=== PATIENT | female | born 1950 | race Caucasian/White ===

== ENCOUNTER 2017-02-16 08:18 | Outpatient (CLI) | payer OTHER ==
[~2017-02-16] VITALS: Ht 171.4 cm; Wt 76.8 kg
--- NOTE | ~2017-02-16 | HP ---
PATIENT: ABIEL WAGGONER MEDICAL RECORD: [id number] ACCOUNT: [id number] LOCATION:[facility] : 54 ADMISSION DATE: 02/16/17 HISTORY AND PHYSICAL EXAMINATION ADMITTING DIAGNOSES: 1. Angina. 2. Dyspnea on exertion. 3. Abnormal nuclear stress test. 4. Supraventricular tachycardia. 5. Hyperlipidemia. 6. Family history of coronary artery disease. HISTORY OF PRESENT ILLNESS: Mrs. Waggoner has no previous history of ischemic heart disease. She presented with angina and supraventricular tachycardia. Supraventricular tachycardia was controlled with metoprolol. She had a nuclear stress testing revealing reversible ischemia, now brought for cardiac catheterization. REVIEW OF SYSTEMS: The patient reports easy bruising but reports no swollen glands. The patient reports no fever, no night sweats, no significant weight gain, no significant weight loss. No significant exercise tolerance. The patient reports no dry eyes, no irritation, no vision change. Patient reports no difficulty hearing and no ear pain. Patient reports no frequent nose bleeds or nose and sinus problems. Patient reports on arm pain on exertion. No shortness of breath while lying down. No history of heart murmur. Patient reports no cough, no wheezing or coughing up blood. Patient reports no abdominal pain, no vomiting. Normal appetite. No diarrhea and not vomiting blood. No nausea and no constipation. Patient reports no incontinence. No difficulty urinating. No hematuria. No increased frequency. Patient reports no muscle aches. No weakness, no arthralgias, no back pain. No swelling of the extremities. Patient reports no abnormal mole, no jaundice, no rashes. Reports no loss of consciousness. No weakness and no numbness. No seizures, dizziness, or headaches. The patient reports no depression, no sleep disturbance, feeling safe in a relationship and no alcohol abuse. Patient reports on fatigue. Reports no runny nose or sinus pressure. No itching, no hives, and no frequent sneezing. PHYSICAL EXAMINATION: GENERAL APPEARANCE: Well-nourished, well-developed, appears stated age. Level of distress, comfortable. PSYCHIATRIC: Mental status, alert, normal affect. Orientation, oriented to time, place and person. EYES: Lids and conjunctiva, noninjected. No discharge, no pallor. ENT: Lips, teeth, gums, normal dentition. Oropharynx, no cyanosis, no pallor. NECK: Carotid arteries, bilateral normal upstroke, no bruits, no thrills. JUGULAR VEINS: No jugular venous pressure or distention. CERVICAL LYMPH NODES: Nontender, nonenlarged. THYROID: Not enlarged. Nontender. No nodules. LUNGS: Respiratory effort, unlabored. CHEST: Normal curvature. No thoracic deformity. No chest wall tenderness. Percussion, resonant. Auscultation, clear. No wheezes, no rales, no rhonchi. CARDIOVASCULAR: Precordial exam, nondisplaced. No heaves or pericardial thrills. Rate and rhythm, regular. Heart sounds, normal S1, normal S2. No S3, no gallop, no rub. Systolic murmur, not heard. Diastolic murmur, not heard. HISTORY AND PHYSICAL [id number] ABIEL WAGGONER EXTREMITIES: No cyanosis, no edema. Peripheral pulses, full and equal in all extremities, except as noted. No bruits appreciated. ABDOMEN: Soft, nondistended. Normal aorta. No bruit. Nontender. No masses. Liver, nontender, no hepatomegaly. Spleen, nontender, no splenomegaly. MUSCULOSKELETAL: No joint tenderness. No joint swelling. No erythema. NEUROLOGICAL: Normal gait, normal strength, normal tone. SKIN: Warm and dry. OVERALL IMPRESSION: Anginal symptomatology, dysrhythmia and abnormal nuclear stress test, most likely she has hemodynamically significant coronary artery disease. We will proceed with coronary angiography. Further care depends upon findings of the angiography. TRANSINT:[id number] Voice Confirmation ID: [id number] DOCUMENT ID: [id number] KIN ALICIA MD CC: [id number] DICTATION DATE: 02/16/17 1013 TOP INSTALLER: 02/16/17 1028 REG [facility] [address] [id number]
--- NOTE | ~2017-02-16 | OP ---
PATIENT NAME: ABIEL ANDERSON MEDICAL RECORD: [id number] :54 LOCATION:D.CAT ADMISSION DATE: SURGEON: KIN ALICIA MD DATE OF OPERATION: 02/16/2017 PROCEDURES: 1. Left heart catheterization. 2. Selective coronary angiography. 3. Left ventriculogram. INDICATION: Chest pain compatible with angina and abnormal nuclear stress test. PROCEDURE IN DETAIL: After informed consent was obtained and after detailed explanation of risks, benefits as well as alternative therapies, the patient elected to proceed with angiogram. The right radial area was prepped and draped in normal sterile fashion. The right radial artery was cannulated via modified Seldinger technique with placement of 5-Burmese sheath. All catheters exchanged through this sheath. FINDINGS: Left ventriculogram was performed in standard 30-degree CEE view, reveals good cardiac wall motion throughout all segments. Overall ejection fraction estimated at 65%. SELECTIVE CORONARY ANGIOGRAPHY: Left main, left anterior descending, left circumflex, right coronary artery are all smooth-walled vessels with no angiographic evidence of coronary artery disease. OVERALL IMPRESSION: 1. No angiographic evidence of coronary artery disease. 2. Normal left heart pressures. 3. Normal left ventricular systolic function. Chest pain is noncardiac in etiology. No further cardiac workup needs to be ascertained. TRANSINT:[id number] Voice Confirmation ID: [id number] DOCUMENT ID: [id number] KIN ALICIA MD CC: [id number] DICTATION DATE: 02/16/17 1151 POULTRY BUYER: 02/16/17 1416 REG [facility] [address] [place] [address]
--- NOTE | ~2017-02-16 | HEMODYNAMI ---
PATIENT:ABIEL ANDERSON MEDICAL RECORD: [id number] : 54 LOCATION:D.CAT ADMISSION DATE: 02/16/17 Generatedon:02/16/201711:48 Patient name: ABIEL ANDERSON Patient #: [id number] SSN: : 1950 Date of study: 02/16/2017 Page: Of Hemodynamic Procedure Report Patient Data Patient Demographics Procedure consent was obtained First Name: ABIEL Gender: Female Last Name: JUSTIN : 1950 Middle Initial: KATIE Age: 66 year(s) Patient #: [id number] Race: Unknown Additional ID: [id number] Contact details Address: [place] [address] State: [place] City: [place] Zip code: [address] Past Medical History Allergies: No known allergies Admission Admission Data Admission Date: 02/16/2017 Admission Time: 8:18 Height (in.): 67 BSA: 1.88 (m2) Height (cm.): 170.18 BMI: 26.47 (kg/m2) Weight (lbs.): 169 Weight (kg.): 76.66 Procedure Procedure Types Cath Procedure Diagnostic Procedure C [facility] w/Coronaries Miscellaneous Procedures Moderate Sedation up to 15 minutes Procedure Description Procedure Date Procedure Date: 02/16/2017 Procedure Start Time: 11:40 Procedure Staff Name Function Ovidio Larsen MD Performing Physician Grecia Hayes RN Nurse Dangelo Rangel RT Monitor Molina Hart RT Scrub Mathieu Thomas RN Health Management Consultant Procedure Data Cath Procedure Fluoroscopy Diagnostic fluoroscopy Total fluoroscopy Time: 0.6 time: 0.6 min min Diagnostic fluoroscopy Total fluoroscopy dose: 159 dose: 159 mGy mGy Contrast Material Contrast Material Type Amount (ml) Isovue 300 40 Entry Location Entry Primary Successful Side Size Upsize Upsize Entry Closure Wan ccessful Closure Location (Fr) 1 (Fr) 2 (Fr) Remarks Device Remarks Radial Right 6 Fr Mechanical artery Short Compression Diagnostic catheters Device Type Used For End Catheter Placement Diagnostic Terumo 5Fr Coronary Gerber 110cm catheter Angiography Procedure Medications Medication Administration Route Dosage Oxygen NC 2 l/min Heparin Flush Bag added to field 2 bags (1000units/500ml NS) Lidocaine 2% added to field 20 Radial Cocktail added to field 1 syringe (Verapomil 2mg/Nitro 400mcg/Heparin 1500units) Versed I.V. 1 mg Fentanyl I.V. 50 mcg Versed I.V. 1 mg Fentanyl I.V. 50 mcg Radial Cocktail added to field 1 syringe (Verapomil 2mg/Nitro 400mcg/Heparin 1500units) Versed I.V. 1 mg Fentanyl I.V. 50 mcg Hemodynamics Rest BSA: 1.88 (m2) O2 Consumption: Estimated: 169.71 (ml/min) O2 Consumption indexed : Estimated:90.27 (ml/min/m) Heart Rate: 61 (bpm) Snapshots Pre Cath Intra NCS Post Cath Vital Signs Time Heart Resp SPO2 NIBP Rhythm Pain Sedation Rate (ipm) (%) (mmHg) Status Level (bpm) 11:07:30 55 16 98 Measuring NSR 0 (11) 10(A) , No pain 11:08:54 58 16 96 Time NSR 0 (11) 10(A) Exceeded , No pain 11:11:50 72 21 95 No Cuff NSR 0 (11) 10(A) , No pain 11:13:20 55 19 99 140/69(92) NSR 0 (11) 10(A) , No pain 11:17:34 55 16 99 109/76(89) NSR 0 (11) 10(A) , No pain 11:21:40 55 19 100 111/66(86) NSR 0 (11) 10(A) , No pain 11:25:48 53 14 100 113/62(76) NSR 0 (11) 10(A) , No pain 11:29:58 57 17 94 93/60(74) NSR 0 (11) 9(A) , No pain 11:34:01 56 15 100 104/55(76) NSR 0 (11) 9(A) , No pain 11:38:07 58 16 100 103/57(77) NSR 0 (11) 9(A) , No pain 11:42:17 62 16 98 95/48(85) NSR 0 (11) 9(A) , No pain 11:46:21 60 16 98 97/52(75) NSR 0 (11) 9(A) , No pain Medications Time Medication Route Dose Verified Delivered Reason Notes Effectiveness by by 11:05:49 Oxygen NC 2 l/min Ovidio Grecia Per Suzie Hayes RN physician 11:05:57 Heparin Flush added 2 bags Ovidio Nolan used for Bag to Suzie Larsen MD procedure (1000units/500ml field NS) 11:06:05 Lidocaine 2% added 20ml Ovidio Ovidio used for to vial Suzie Larsen MD procedure field 11:06:10 Radial Cocktail added 1 Ovidio Ovidio used for (Verapomil to syringe Suzie Larsen MD procedure 2mg/Nitro field 400mcg/Heparin 1500units) 11:22:27 Versed I.V. 1 mg Ovidio Grecia for sedation Suzie Hayes RN 11:22:33 Fentanyl I.V. 50 mcg Ovidio Grecia for sedation Suzie Hayes RN 11:25:14 Versed I.V. 1 mg Ovidio Grecia for sedation Suzie Hayes RN 11:25:21 Fentanyl I.V. 50 mcg Ovidio Grecia for sedation Suzie Hayes RN 11:27:39 Versed I.V. 1 mg Ovidio Grecia for sedation Suzie Hayes RN 11:27:51 Fentanyl I.V. 50 mcg Ovidio Grecia for sedation Suzie Hayes RN 11:41:10 Radial Cocktail added 1 Ovidio Ovidio for (Verapomil to syringe Suzie Larsen MD vasodilation 2mg/Nitro field 400mcg/Heparin 1500units) Procedure Log Time Note 10:53:24 Mathieu Thomas RN sent for patient. Start room use. 10:53:25 Time tracking: Regular hours 10:53:29 Plan of Care:Hemodynamics will remain stable., Cardiac rhythm will remain stable., Comfort level will be maintained., Respiratory function will remain adequate., Patient/ family verbilizes understanding of procedure., Procedure tolerated without complication., Recovers from procedure without complications.. 10:58:21 Patient received from Pre/Post Procedure Room to CCL 2 Alert and oriented. Tansferred to table in Supine position. 10:58:23 Warm blankets applied, and tomasz hugger turned on for patient comfort. 10:58:23 Correct patient and procedure confirmed by team. 10:58:25 Signed procedure consent form obtained from patient. 10:58:26 ECG and BP/O2 sat monitors applied to patient. 10:58:27 Full Disclosure recording started 10:58:27 - 10:58:31 H&P Date Dictated: 02/16/2017 H&P Addendum completed by physician on day of procedure. (MUST COMPLETE FOR ALL OUTPATIENTS). 10:58:32 Pre-procedure instructions explained to patient. 10:58:33 Pre-op teaching completed and patient verbalized understanding. 10:58:34 Family in waiting room. 10:58:36 Patient NPO since Midnight. 10:58:45 Is the patient allergic to Iodine/contrast media? No. 11:05:40 Vital chart was started 11:05:49 Oxygen 2 l/min NC was administered by Grecia Hayes RN; Per physician; 11:05:57 Heparin Flush Bag (1000units/500ml NS) 2 bags added to field was administered by Ovidio Larsen MD; used for procedure; 11:06:05 Lidocaine 2% 20ml vial added to field was administered by Ovidio Larsen MD; used for procedure; 11:06:10 Radial Cocktail (Verapomil 2mg/Nitro 400mcg/Heparin 1500units) 1 syring e added to field was administered by Ovidio Lrasen MD; used for procedure; 11:06:33 ----Pre-sedation anethsthesia assessment.---- 11:06:44 Was the patient premedicated? No 11:06:45 Is patient on blood thinner?Yes 11:06:48 ACC The patient was administered the following blood thiners within the last 24 hours: ACCPlavix 11:06:50 Patient diabetic? No. 11:06:51 Previous problem with sedation/anesthesia? No ? 11:06:54 Previous problem with sedation/anesthesia? No ? 11:06:55 Snore? Yes 11:06:56 Sleep apnea? No 11:06:57 Deviated septum? No 11:07:00 Opens mouth fully? Yes 11:07:01 Sticks out tongue? Yes 11:07:04 Airway obstruction? No ? 11:07:11 Dentures? No ? 11:07:14 Pre procedure: right dorsailis pedis pulse Doppler 11:07:18 Modified Osvaldo's test Radial < 7 seconds 11:07:23 Patient pain scale 0/10 no pain. 11:07:31 IV patent on arrival in right forearm with 0.9% NaCl at [facility]. 11:07:43 Sharps counted by scrub and verified by R.N. 11:07:44 Alarms reviewed by R. N. 11:07:53 Right Radial & Right Groin area was prepped with chlora-prep and draped in sterile fashion 11:08:13 Patient allergic to No known allergies 11:08:27 Patient Height : 170.18 cm 11:08:33 Patient Weight : 76.66 kg 11:09:15 Baseline sample Acquired. 11:09:20 Rhythm: sinus rhythm 11:16:26 Use device set Radial Dx 11:16:27 Acist Syringe opened to sterile field. 11:16:27 Medline Cath Pack opened to sterile field. 11:16:28 Bag Decanter opened to sterile field. 11:16:28 Terumo 6Fr Slender Glidesheath opened to sterile field. 11:16:29 St Lalo 260cm J .035 wire opened to sterile field. 11:16:29 Acist Hand Control opened to sterile field. 11:16:29 Acist Manifold opened to sterile field. 11:16:30 Tegaderm 4 x 4 opened to sterile field. 11:16:31 MBrace Wrist Support opened to sterile field. 11:22:12 Physician arrived 11:22:13 --------ALL STOP TIME OUT------ 11:22:13 Final Timeout: patient, procedure, and site verified with staff and physician. All members of the team are in agreement. 11:22:15 Right Radial & Right Groin site verified by team. 11:22:19 Physical assessment completed. ASA score P 2 - A patient with mild systemic disease as per Ovidio Larsen MD. 11:22:23 Sedation plan: IV Moderate Sedation Versed, Fentanyl 11::27 Versed 1 mg I.V. was administered by Grecia Hayes RN; for sedation; 11::33 Fentanyl 50 mcg I.V. was administered by Grecia Hayes RN; for sedation; 11::14 Versed 1 mg I.V. was administered by Grecia Hayes RN; for sedation; 11::21 Fentanyl 50 mcg I.V. was administered by Grecia Hayes RN; for sedation; 11::39 Versed 1 mg I.V. was administered by Grecia Hayes RN; for sedation; 11::51 Fentanyl 50 mcg I.V. was administered by Grecia Hayes RN; for sedation; 11::56 Procedure started. 11:40:07 Local anesthetic to right radial artery with Lidocaine 1% by Ovidio Larsen MD.INITIAL ACCESS ONLY 11:40:38 A 6 Fr Short sheath was inserted into the Right Radial artery 11:41:10 Radial Cocktail (Verapomil 2mg/Nitro 400mcg/Heparin 1500units) 1 syring e added to field was administered by Ovidio Larsen MD; for vasodilation; 11:41:24 A Diagnostic Terumo 5Fr Gerber 110cm catheter was advanced over the wire and used for Coronary Angiography. 11:42:18 RCA angiography performed. 11:42:25 LCA angiography performed. 11:42:40 Terumo TR Band Standard opened to sterile field. 11:44:36 Sheath removed intact; hemostasis achieved with Mechanical Compression to the Right Radial artery. 11:44:39 Procedure ended.(Physican Out) 11:44:55 Fluoroscopy time 00.60 minutes. 11:45:00 Fluoroscopy dose: 159 mGy 11:45:00 Flurop Dose total: 159 11:45:05 Contrast amount:Isovue 300 40ml. 11:45:06 Sharps counted by scrub and verified by R.N. 11:45:08 Insertion/operative site no bleeding no hematoma. 11:45:20 Post right radial artery:stable 11:45:21 Post Procedure Pulses reassessed and unchanged 11:45:27 Post-procedure physical assessment completed. ASA score P 2 - A patient with mild systemic disease as per Ovidio Larsen MD. 11:45:30 Post procedure rhythm: unchanged. 11:45:42 Post procedure instruction explained to patient.Patient verbalizes understanding. 11:45:43 Procedure and supply charges have been captured, reviewed, submitted an d are correct. 11:47:30 Report given to Pre/Post Procedure Room. 11:47:33 Patient transfered to Pre/Post Procedure Room with Stretcher. 11:47:59 Vital chart was stopped Device Usage Item Name Manufacture Quantity Catalog Hospital Part Current Minimal Lot# / Number Charge Number Stock Stock Serial# Code Acist Acist 1 03167 [id number] [id number] [id number] 20 Syringe [employer] Inc Medline Cardinal 1 [id number] 27845 467719 5 Cath Pack Health Bag Microtek 1 2001S 266140 33199 747416 5 Decanter [employer] Inc. Terumo 6Fr Terumo 1 [id number] 960217 884612 025848 [address] St Lalo 1 [id number] 645014 254409 017101 30 260cm J .035 wire Acist Hand Acist 1 97720 407813 126763 636558 5 Control [employer] Inc Acist Acist 1 14500 569374 093504 670335 5 Manifold Medical [employer] Inc Tegaderm 4 3M 1 1626W 037735 185941 217577 5 x 4 MBrace Advanced 1 140-0250-00 230982 02239 722954 5 Wrist Vascular Support Dynamics Diagnostic Terumo 1 39-1738 752950 959132 425606 5 Terumo 5Fr Gerber 110cm catheter Terumo TR Terumo 1 [id number] 310776 837677 200437 40 Band Standard Signature Audit [place] Stage Time Signature Unsigned Intra-Procedure 02/16/2017 Dangelo 11:47:56 AM Jenniferield RT (R) (CV) Signatures Monitor : Dangelo Signature : Claire RT Date : Time : [facility] [address] [place] [address]
[2017-02-16] MEDS ORDERED: PLAVIX75 MG PO (08:54)
[2017-02-16] MEDS ORDERED: METOPROLOL TART25 MG PO (08:55)
[2017-02-16] MEDS ORDERED: OMEPRAZOLE20 M1 PO (08:55)
[2017-02-16] MEDS ORDERED: PRAVACHOL40 MG PO (08:55)
[2017-02-16 09:04] VITALS: BP 136/66; Ht 171.4 cm; Wt 76.8 kg
[2017-02-16 09:22] LABS: BASOPHILS 0.4 % (0-2); EOSINOPHILS 1.3 % (0-7); HEMATOCRIT 38.4 % (36.0-48.0); HEMOGLOBIN 12.5 g/dL (12-16); LYMPHOCYTES 31.3 % (15-50); MCH 29.8 pg (26.0-34.0); MCHC 32.6 g/dL (31.0-37.0); MCV 91.6 fL (80.0-100.0); MEAN PLATELET VOLUME 10.6 fL (7.4-10.4); MONOCYTES 11.9 % (2-11); NEUTROPHILS 55.1 % (40-80); PLATELET COUNT 272 10x3/uL (130-400); RBC 4.19 10x6/uL (4.00-5.40); RDW 13.1 % (11.5-14.5); WBC 5.3 10x3/uL (4.8-10.8)
[2017-02-16 09:39] LABS: CALC OSMOLALITY 281 mosm/kg (275-300); CALCIUM 8.5 mg/dL (8.5-10.1); CARBON DIOXIDE 30.2 mmol/L (21.0-32.0); CHLORIDE - SERUM 106 mmol/L (98-107); CREATININE - SERUM 0.8 mg/dL (0.6-1.3); GLUCOSE 100 mg/dL (74-106); POTASSIUM - SERUM 3.8 mmol/L (3.5-5.1); SODIUM 142 mmol/L (136-145); UREA NITROGEN 11 mg/dL (7-18); eGFR NON AFRICAN AMERICAN 76 mL/min (90-120)
[2017-02-16 09:59] LABS: CKMB 0.9 U/L (0.0-3.6); CREATINE KINASE 110 UL (21-215)
[2017-02-16 10:04] LABS: TROPONIN-I < 0.017 ng/mL (0.000-0.060)
--- NOTE | 2017-02-16 12:09 | NUR ---
RESTING WITH EYES CLOSED, O2 AT 2L PER NC FOR COMFORT, AT SIDE-DENIES NEEDS. TR BAND INTACT.
--- NOTE | 2017-02-16 12:45 | NUR ---
CONTINUES TO REST, TR BAND INTACT, AT SIDE- DENIES NEEDS
--- NOTE | 2017-02-16 14:00 | NUR ---
IV D'C WITH CATH TIP INTACT, WRITTEN AND VERBAL INSTRUCTIONS GIVEN TO PT AND - VERBAL UNDERSTANDING NOTED. UP TO RESTROOM - VOID. TR BAND OFF- BANDAID APPLIED AND BRACE IN PLACE. D'C HOME
== END 2017-02-16 14:05 | disposition home or self-care (01) ==
LOC: D.CATH 08:18
PROVIDERS: Internal Medicine Interventional Cardiology
DX: I20.9 Angina pectoris, unspecified (principal); R06.00 Dyspnea, unspecified; R94.30 Abnormal result of cardiovascular function study, unspecified; I47.1 Supraventricular tachycardia; E78.5 Hyperlipidemia, unspecified; Z82.49 Family history of ischemic heart disease and other diseases of the circulatory system; Z01.812 Encounter for preprocedural laboratory examination

== ENCOUNTER → 2017-05-22 09:17 | Outpatient (CLI) | payer OTHER ==
[2017-02-16 09:04] VITALS: BMI 26.1
[~2017-05-22 09:17] MED LIST: METOPROLOL TART25 MG PO; OMEPRAZOLE20 M1 PO; PLAVIX75 MG PO; PRAVACHOL40 MG PO
[2017-05-23 07:23] LABS: IMMUNOGLOBULIN E 7 IU/mL (0-100)
== END | disposition home or self-care (01) ==
LOC: D.RT 08:00
PROVIDERS: Internal Medicine Pulmonary Disease
DX: R06.00 Dyspnea, unspecified (principal)

== ENCOUNTER 2017-08-31 12:33 | Outpatient (CLI) | payer OTHER ==
[2017-02-16 09:04] VITALS: BMI 26.1
== END 2017-08-31 23:59 | disposition home or self-care (01) ==
LOC: D.NM 12:33
DX: R10.11 Right upper quadrant pain (principal)

== ENCOUNTER → 2019-04-13 13:10 | Outpatient (CLI) | payer MEDICARE, BC ==
[2017-02-16 09:04] VITALS: BMI 26.1
== END | disposition home or self-care (01) ==
LOC: D.RAD 13:10
PROVIDERS: ATTEND Internal Medicine Cardiovascular Disease
DX: R06.09 Other forms of dyspnea (principal)

== ENCOUNTER → 2019-04-27 10:09 | Outpatient (CLI) | payer MEDICARE, BC ==
[2017-02-16 09:04] VITALS: BMI 26.1
== END | disposition home or self-care (01) ==
LOC: D.CT 10:09
PROVIDERS: ATTEND Internal Medicine Cardiovascular Disease
DX: R93.1 Abnormal findings on diagnostic imaging of heart and coronary circulation (principal)